=== PATIENT | female | born 1990 | race Caucasian/White ===

== ENCOUNTER 2017-03-22 16:55 | Emergency (ER) | payer OTHER ==
[~2017-03-22] VITALS: Ht 165.1 cm; Wt 61.2 kg
[2017-03-22 17:12] VITALS: BP 153/82
--- NOTE | 2017-03-22 17:12 | NUR ---
Patient to bed 05.
--- NOTE | 2017-03-22 17:14 | NUR ---
PATIENT PRESENTS TO ED WITH C/O CONSTIPATION FOR 3 WEEKS. PT STATES SHE PASSESS SMALL HARD STOOLS 4 DAYS AGO. DENIES N/V/D; SKIN IS PINK/WARM/DRY; AAOX4 WITH EVEN AND STEADY GAIT; LUNGS CLEAR BL; HR EVEN AND REGULAR; PT DENIES ANY FEVER, CP, SOB, OR COUGH AT THIS TIME; PATIENT STATES PAIN OF 0/10 AT THIS TIME;PATIENT POSITIONED FOR COMFORT; HOB ELEVATED; BEDRAILS UP X2; BED DOWN.
[2017-03-22] MEDS ORDERED: NACL 0.9% 1,000 ML IV SCH (17:24)
[2017-03-22] MEDS ORDERED: MAGNESIUM CITRATE 300 ML BTL PO ONE (17:25)
--- NOTE | 2017-03-22 17:55 | NUR ---
er at bedside
[2017-03-22] MEDS ORDERED: SODIUM PHOSPHATE 118 ML ENEM RC ONE (18:05)
--- NOTE | 2017-03-22 18:23 | NUR ---
Patient discharged with v/s stable. Written and verbal after care instructions given and explained. Patient alert, oriented and verbalized understanding of instructions. Ambulatory with steady gait. All questions addressed prior to discharge. ID band removed. Patient advised to follow up with PMD. Rx of glycerin adult rectal suppository and miralax given. Patient educated on indication of medication including possible reaction and side effects. Opportunity to ask questions provided and answered.
[2017-03-22 18:25] VITALS: BP 153/82
== END 2017-03-22 18:23 | disposition home or self-care (01) ==
LOC: MED 16:55 → EEVIPCON 16:55 → MED 18:23
CPT/HCPCS: 74022; 81002; 81025; 99284; J7030